=== PATIENT | female | born 1950 | race Caucasian/White ===

== ENCOUNTER 2021-07-27 18:58 | Emergency (ER) | payer OTHER ==
[~2021-07-27] VITALS: Ht 177.8 cm; Wt 110.0 kg
[2021-07-27 19:06] VITALS: BP 147/63
[2021-07-27] MEDS ORDERED: IPRATRPIUM/ALBUTEROL 0.5/2.5MG 3 ML NEBU. NEB ONE ×2 (19:15→20:15)
--- NOTE | 2021-07-27 19:25 | PHYS DOC ---
Past History Past Surgical History: Other (ALMA GIBSON APRN) General Adult EDM: Chief Complaint: SHORTNESS OF BREATH HPI: HPI: Patient is a 71-year-old female who presents to the ER for shortness of breath that started 1 hour prior to arrival. Patient has a history of COPD and she is out of her nebulizer treatments. Patient wears 3 L of oxygen at home at night. Patient also has a history of congestive heart failure and did not take her Lasix today. Patient states that she had redness and swelling to her left leg and was given a prescription for doxycycline which she finished yesterday. She states that the redness, warmth, swelling has not improved. Patient denies any increased cough, fevers, chest pain. (ALMA GIBSON APRN) Review of Systems: Review of Systems: 14 body systems of the review of systems have been reviewed. See HPI for pertinent positive and negative responses, otherwise all other systems are negative, nonpertinent or noncontributory (ALMA GIBSON APRN) Current Medications: Current Meds: Current Medications Medications (Trade) Dose Ordered Sig/Nathalie Start Time Stop Time Status Last Admin Dose Admin Albuterol/ Ipratropium (Duoneb) 3 ml 1X ONCE 07/27/21 19:15 07/27/21 19:16 (ALMA GIBSON APRN) Allergies: Allergies: Allergies Coded Allergies Type Severity Reaction Last Updated Verified morphine Allergy Intermediate rash 07/27/21 Yes (ALMA GIBSON APRN) Physical Exam: PE: Constitutional: Well developed, well nourished, no acute distress, non-toxic appearance. [] HENT: Normocephalic, atraumatic, bilateral external ears normal, oropharynx moist, no oral exudates, nose normal. [] Eyes: PERRL, EOMI, conjunctiva normal, no discharge. [] Neck: Normal range of motion, no stridor Cardiovascular:Heart rate regular rhythm, no murmur [] Lungs & Thorax: Bilateral breath sounds clear but diminished to auscultation [] Abdomen: Bowel sounds normal, soft, no tenderness, no masses, no pulsatile masses. [] Skin: Warm, dry, no erythema, no rash. [] Back: Normal range of motion Extremities: No tenderness, no cyanosis, no clubbing, ROM intact, 2+ pitting edema noted to right lower extremity, trace edema noted to left lower extremity with redness and warmth Neurologic: Alert and oriented X 3, normal motor function, normal sensory function, no focal deficits noted. [] Psychologic: Affect normal, judgement normal, mood normal. [] (ALMA GIBSON APRN) Current Patient Data: Labs: Laboratory Tests Test 07/27/21 19:46 White Blood Count 10.8 x10^3/uL Red Blood Count 5.00 x10^6/uL Hemoglobin 14.8 g/dL Hematocrit 45.2 % Mean Corpuscular Volume 90 fL Mean Corpuscular Hemoglobin 30 pg Mean Corpuscular Hemoglobin Concent 33 g/dL Red Cell Distribution Width 14.5 % Platelet Count 215 x10^3/uL Neutrophils (%) (Auto) 58 % Lymphocytes (%) (Auto) 34 % Monocytes (%) (Auto) 6 % Eosinophils (%) (Auto) 2 % Basophils (%) (Auto) 1 % Neutrophils # (Auto) 6.2 x10^3uL Lymphocytes # (Auto) 3.7 x10^3/uL Monocytes # (Auto) 0.7 x10^3/uL Eosinophils # (Auto) 0.2 x10^3/uL Basophils # (Auto) 0.1 x10^3/uL Sodium Level 144 mmol/L Potassium Level 4.3 mmol/L Chloride Level 106 mmol/L Carbon Dioxide Level 34 mmol/L Anion Gap 4 Blood Urea Nitrogen 16 mg/dL Creatinine 0.9 mg/dL Estimated GFR (Cockcroft-Gault) 62.1 BUN/Creatinine Ratio 18 Glucose Level 188 mg/dL Calcium Level 8.6 mg/dL Total Bilirubin 0.3 mg/dL Aspartate Amino Transf (AST/SGOT) 17 U/L Alanine Aminotransferase (ALT/SGPT) 28 U/L Alkaline Phosphatase 103 U/L Troponin I Quantitative < 0.017 ng/mL SD-Bqg-I-Type Natriuretic Peptide 735 pg/mL Total Protein 5.9 g/dL Albumin 3.2 g/dL Albumin/Globulin Ratio 1.2 Current Medications Medications (Trade) Dose Ordered Sig/Nathalie Route PRN Reason Start Time Stop Time Status Last Admin Dose Admin Albuterol/ Ipratropium (Duoneb) 3 ml 1X ONCE NEB 07/27/21 19:15 8/28/21 19:16 DC 07/27/21 19:20 Albuterol/ Ipratropium (Duoneb) 3 ml 1X ONCE NEB 07/27/21 20:15 07/27/21 20:21 DC 07/27/21 20:20 Vital Signs: Vital Signs Date Time Temp Pulse Resp B/P (MAP) Pulse Ox O2 Delivery O2 Flow Rate FiO2 07/27/21 19:06 98.1 76 26 147/63 92 Room Air (ALMA GIBSON APRN) EKG: EKG: EKG performed by ER staff at 914 shows sinus rhythm, no STEMI read by Dr. Jules [] (ALMA GIBSON APRN) Radiology/Procedures: Radiology/Procedures: [] (ALMA GIBSON APRN) Heart Score: C/O Chest Pain: No Risk Factors: Risk Factors: DM, Current or recent (<one month) smoker, HTN, HLP, family history of CAD, obesity. Risk Scores: Score 0 - 3: 2.5% MACE over next 6 weeks - Discharge Home Score 4 - 6: 20.3% MACE over next 6 weeks - Admit for Clinical Observation Score 7 - 10: 72.7% MACE over next 6 weeks - Early Invasive Strategies (ALMA GIBSON APRN) Course & Med Decision Making: Course & Med Decision Making Pertinent Labs and Imaging studies reviewed. (See chart for details) [] Patient is a 71-year-old female with a history of COPD and CHF who complains of shortness of breath x1 hour. Work-up in the ER consisted of blood work, EKG, chest x-ray. Patient was treated with a DuoNeb treatment in the ER. Patient is also warm, increased swelling. Patient recently completed doxycycline. Patient's vital signs are stable and she is not tachycardic. Lab work was unremarkable. Her BNP is 735. Wells score is -1. Patient was given a second DuoNeb treatment in the ER and she states that she has improvement in her symptoms. Patient wants to be discharged from the ER. I notified patient that we are waiting for her chest x-ray results to determine if she has a pneumonia. Patient states that she does not want to wait for this read. Patient signed out AGAINST MEDICAL ADVICE. Patient is alert and oriented and capable of making healthcare decisions. Patient acknowledges the risks associated with signing out AGAINST MEDICAL ADVICE. (ALMA GIBSON APRN) Course & Med Decision Making Did not see or evaluate patient. Agree with [employer]'s work-up and disposition per note. (SOL JULES MD) Dragon Disclaimer: Dragon Disclaimer: This electronic medical record was generated, in whole or in part, using a voice recognition dictation system. (ALMA GIBSON APRN) Departure Departure: Impression: Primary Impression: Left against medical advice Additional Impression: Shortness of breath Disposition: 07 LEFT AGAINST MEDICAL ADVICE Condition: STABLE Referrals: NON,STAFF (PCP) ALMA GIBSON APRN Jul 27, 2021 19:25 SOL JULES MD Jul 27, 2021 21:24
[2021-07-27 19:58] LABS: BASO # 0.1 x10^3/uL (0.0-0.2); BASO % 1 % (0-3); EOS # 0.2 x10^3/uL (0.0-0.7); EOS % 2 % (0-3); HEMATOCRIT 45.2 % (36.0-47.0); HEMOGLOBIN 14.8 g/dL (12.0-15.5); LYMPH # 3.7 x10^3/uL (1.0-4.8); LYMPH % 34 % (24-48); MEAN CORPUSCULAR HEMOGLOBIN 30 pg (25-35); MEAN CORPUSCULAR HGB CONC 33 g/dL (31-37); MEAN CORPUSCULAR VOLUME 90 fL (79-100); MONO # 0.7 x10^3/uL (0.0-1.1); MONO % 6 % (0-9); NEUT # 6.2 x10^3uL (1.8-7.7); NEUT % 58 % (31-73); PLATELET COUNT 215 x10^3/uL (140-400); RED CELL DISTRIBUTION WIDTH 14.5 % (11.5-14.5); WHITE BLOOD COUNT 10.8 x10^3/uL (4.0-11.0)
[2021-07-27 20:07] LABS: CALCIUM 8.6 mg/dL (8.5-10.1); CREATININE 0.9 mg/dL (0.6-1.0); GFR 62.1; POTASSIUM 4.3 mmol/L (3.5-5.1)
[2021-07-27 20:13] LABS: ALBUMIN 3.2 g/dL (3.4-5.0); ALBUMIN/GLOBULIN RATIO 1.2 (1.0-1.7); TOTAL BILIRUBIN 0.3 mg/dL (0.2-1.0); TOTAL PROTEIN 5.9 g/dL (6.4-8.2)
--- NOTE | 2021-07-27 20:53 | EKG ---
[address] [address] Test Date: 2021-07-27 Test Time: 19:14:47 Pat Name: ZAYDA WALSH Department: Room: Gender: F [employer]: TAMIKO : 1950 Requested By: ALMA GIBSON Order Number: [id number] Reading MD: Measurements Intervals [place] Rate: 68 P: 39 W[place]: 156 QRS: 17 QRSD: 72 T: 64 QT: 392 QTc: 422 Interpretive Statements SINUS RHYTHM NORMAL ECG RI6.02 No previous ECG available for comparison
--- NOTE | 2021-07-27 21:09 | RAD ---
EXAM: CHEST 1 VIEW History: Shortness of breath COMPARISON: None available. TECHNIQUE: Single portable radiograph of the chest FINDINGS: Mild cardiomegaly. Mild bibasilar lung airspace opacities. The costophrenic sulci are marcelino r and well demarcated. IMPRESSION: Mild bibasilar lung airspace opacities likely atelectasis or infiltrates. Electronically signed by: Mariusz Alanis MD (07/27/2021 9:06 PM) [id number]
== END 2021-07-27 21:04 | disposition left against medical advice (07) ==
LOC: ER 18:58 → MERGE 18:58 → ER 21:04
DX: R06.02 Shortness of breath (principal); J44.9 Chronic obstructive pulmonary disease, unspecified; Z88.5 Allergy status to narcotic agent
CPT/HCPCS: 36415; 71045; 80053; 83880; 84484; 85025; 93005; 94640; 99285-25